=== PATIENT | female | born 1980 | race Caucasian/White ===

== ENCOUNTER → 2021-03-12 16:11 | Outpatient (CLI) | payer BC, SELFPAY ==
--- NOTE | 2021-03-12 16:20 | RAD_ITS ---
STUDY: X-RAY - LUMBAR SPINE REASON FOR EXAM: Female, 40 years old. BACK PAIN TECHNIQUE: 3 view(s) of the lumbar spine were obtained. COMPARISON: None FINDINGS: Normal lumbar lordosis. There is no substantial scoliosis. There is a normal alignment of the vertebrae. Status post surgical fusion posteriorly of L4-S1. Normal vertebral bodies and endplates. Normal disc space heights. Disc spacers are noted at L4-5 and L5-S1 levels. The soft tissue structures are unremarkable. Colonic fecal retention. RAD/Lumbar Spine 2 or 3 Views IMPRESSION: Post surgical changes of the lumbar spine. Electronically Signed: Pedro Luis Senior DO at 16:42 EST Tel [phone], Service support ,
== END ==
LOC: RAD 16:15
PROVIDERS: Visit Provider Anesthesiology Pain Medicine
DX: M54.50 Low back pain, unspecified (principal)
CPT/HCPCS: 72100

== ENCOUNTER → 2021-03-14 | Outpatient (CLI) | payer BC, SELFPAY ==
[2021-03-14 19:49] LABS: Amphetamine Urine VISTA NEGATIVE (<1000 ng/mL); Barbiturate Urine VISTA NEGATIVE (< 200 ng/mL); Benzodiazepine Urine VISTA NEGATIVE (< 200 ng/mL); Cocaine Urine VISTA NEGATIVE (< 300 ng/mL); Ecstacy Urine VISTA NEGATIVE (< 500 ng/mL); Methadone Urine VISTA NEGATIVE (< 300 ng/mL); PCP Urine VISTA NEGATIVE (< 25 ng/mL); THC Urine VISTA NEGATIVE (< 50 ng/mL); Vista UDS pH Range 5
== END | disposition home or self-care (01) ==
PROVIDERS: Visit Provider Anesthesiology Pain Medicine
DX: F11.20 Opioid dependence, uncomplicated (principal)
CPT/HCPCS: 80307

== ENCOUNTER 2021-06-22 16:00 | Outpatient (RCR) | payer BC, SELFPAY ==
--- NOTE | 2021-05-23 17:44 | HP.PTEVAL_ITS ---
Patient's Visit Information PANCHO GRAF is a 40 year old F referred to Physical Therapy by Dr. Rosalva Hendrix MD with a diagnosis of Low back pain. Date of Evaluation: 05/23/21 Physical Therapist: Chente Triplett DPT - Visit Plan Frequency: 2x /Week Duration: 4 Weeks Plan: Start with BLE and core strengthening in pool. Add in postural control progressing as tolerated. I am not as worried about her ROM as I am about her marked BLE weakness. We will start in aquatic setting and progress as tolerated. Pt. is to have injections, date unknown as of today. - Subjective Pt. is here today for her initial evaluation with diagnosis of low back pain. Pt. reports having increasing back pain over the past few years, but gradually. She had a multi level fusion of L4-S1 ~2 years ago which did help her mobility, but is still having pain. She reports mornings are better, resting is better, sitting is good for up to 1 hour. 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 She had previously had issues with BLE pain, weakness and urine retention. She is now better with B/B control, but is still having issues wit weakness and with leg pain. She has fallen down her steps at home and does not feel confident with stair negotiation. She reports being able to complete all ADLS, cooking driving and working, but has pain with all of them. She also voices concerns about her leg strength and how her weakness is effecting her general mobility. 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 She has wide ANNMARIE with B hip ER, indicating attempt to increase stability. PALPAT ION: Pt. has tenderness along lumbar erector spinae. No pain in legs to palpation. No distal edema noted. NEURO: Pt. has normal DTR of BLEs. Pt. has normal sensation to light and sharp touch throughout BLEs, except lateral distal LE is dull. Pt. is able to rise on heels and toes, but difficult. ROM: LUMBAR SPINE: Pt. has very limited ROM throughout lumbar spine: max loss with extension increase NW, mod loss with flexion increase NW, SB max loss bilat increase NW, rotation mod/max loss bilat increase NW. Tight HS bilat, and tight hip flexors bilat. MMT: RLE: ankle: DF 4/5, PF 4/5, INV 4/5, EVR 4/5. Knee: flexion 4-/5, ext 4/5; hip: flexion 3+/5, abd 4/5, ext 4/5. LLE: DF 4/5, PF 4/5, INV 4/5, EVR 4/5. Knee: flexion 4/5, ext 4/5; hip: flexion 4/5, abd 4/5, ext 4/5. Core strength: poor. GAIT: Pt. ambulates without an AD. She has a methodical pattern with decreased step length. She has sway back posture with ER hips. She has increased lateral, contralateral hip drop noted. STARIS: Pt. able to negotiate with 2 HR and step to pattern, marked functional weakness noted with both ascending and descending. - Balance/Special Test Scores Oswestry Low Back Score: 27 - Goals Goal 1:: LTG: Pt. to be I with HEP for both core stability and BLE strengthening in order to reduce stress to lumbar spine with all functional and work activities. Goal Time Frame: 4-6 Weeks Goal 2:: STG: Pt. to have be able to stand at work up to 30 minutes with less than 4/10 pain in lumbar spine. Goal Time Frame: 2-4 Weeks Goal 3:: LTG: Pt. to be able to walk 500+ wt. with improved pattern with 3/10 pain in lumbar spine and BLEs. Goal Time Frame: 4-6 Weeks Goal 4:: LTG: Pt. to have increased core and BLE strength increased to at least 4+/5 throughout. Goal Time Frame: 4-6 Weeks Goal 5:: LTG: Pt. to negotiate 1 flight of stairs with 1 HR with reciprocal pattern without LOB and proper functional strength. Goal Time Frame: 4-6 Weeks - Rehabilitation Potential Physical Therapy Diagnosis: Pt. has signs and symptoms of low back pain with marked BLE weakness, core weakness, difficulty walking, and increased low back and leg pain. Pt. would benefit from PT to work on BLE and core strength. Rehabilitation Potential: Fair - Anticipated Interventions Patient/Client Instruction: Educate patient on: Condition, Plan of Care, Risk Factors, Benefits of Fitness Program For the Purpose of:: To improve safety, To improve health and function, To foster healthy habits, To improve decision making, To facilitate caregiver knowledge, To improve self management, To prevent re-injury, To improve ability to perform tasks related to life management Therapeutic Exercise to Include: Strength training, Power training, Balance training, Coordination, Agility training, Body mechanics, Postural training, Flexibilty training, In an aquatic setting, Dynamic Lumbar Stabilization For the Purpose of:: To decrease pain, To decrease swelling/inflammation, To increase ROM, To improve nutrient delivery to tissue, To increase oxygenation perfusion, To improve muscle performance and motor function, To improve ability to perform ADL's, To increase tolerance to activity/condition/position, To improve performance and independence with ADL's, To decrease level of supervision to perform tasks, To improve ability of physical actions for dung e/community/work/leisure, To improve gait and locomotor functions, To decrease soft tissue restriction, To increase flexibility/ROM, To improve endurance, To improve balance Thank you for the opportunity to evaluate your patient. For Medicare and Medicare HMO plans, please review the plan of care and approve it. It will need to be FAXED BACK to us at [phone] for Medicare purposes. For Medicare only, by signing this I certify the plan of care. Please let me know if there are questions or concerns regarding this plan of care. Physician Signature: Date:
== END 2021-06-22 19:00 | disposition home or self-care (01) ==
LOC: PT 16:00
PROVIDERS: Referring Provider Anesthesiology Pain Medicine; Visit Provider Anesthesiology Pain Medicine
DX: M54.9 Dorsalgia, unspecified (principal)
CPT/HCPCS: 97113; 97161

== ENCOUNTER 2021-07-23 17:38 | Outpatient (CLI) | payer BC, SELFPAY | END 2021-07-23 23:59 | disposition home or self-care (01) | PROVIDERS: Visit Provider Anesthesiology Pain Medicine | DX: F11.20 Opioid dependence, uncomplicated (principal) ==